=== PATIENT | female | born 1945 | race Caucasian/White ===

== ENCOUNTER → 2016-05-02 | Day surgery (SDC) | payer MEDICARE ==
[~2016-05-02] MED LIST: ACETAMINOPHEN/HYDROcodone 325 MG/5 MG TAB ONE; ALPR-138 PO; BENETAB PO; BUPIVACAINE/EPINEPHRINE 0.25% 50 ML VIAL ONE; CALCTAB80 PO; CLOP75 PO; COZA100T PO; DICLOFENAC SODIUM 37.5 MG/ML VIAL IV PUSH ONE; DOCU1CAP39 PO; EXTR500C PO; FEXO180 PO; HYDR-2768 PO; ISOMCAP PO; LACTATED RINGER'S 1000 ML INJ 1,000 ML ONE; LIDOCAINE PO; MAGNESIUM/ZINC PO; MIDAZOLAM HCL 2 MG/2 ML VIAL ONE; ONDANSETRON HCL 4 MG/2 ML VIAL IV PUSH ONE; PRIL40CA PO; PROP80 PO; PROPOFOL 200 MG/20 ML AMP IV ONE; ZOCO40TA PO; [UNRECOGNIZED DRUG - CODE] PO; [UNRECOGNIZED DRUG - OTHER] PO; ceFAZolin 2 GM PREMIX 50 ML ONE; metroNIDAZOLE 500 MG INJ 100 ML IV ONE
--- NOTE | 2016-05-02 09:49 | TN ---
cc: EDGARDO MALIK M.D. DATE OF SURGERY: 05/02/2016 PREOPERATIVE DIAGNOSIS 1. Chronic right upper quadrant pain. 2. Biliary dyskinesia. POSTOPERATIVE DIAGNOSIS 1. Chronic right upper quadrant pain. 2. Biliary dyskinesia. 3. Probable chronic cholecystitis. 4. Significant small bowel adhesions to midline incision. PROCEDURE PERFORMED 1. Diagnostic laparoscopy. 2. Laparoscopic cholecystectomy. SURGEON Edgardo Malik ANESTHESIA General endotracheal. COMPLICATIONS None. INDICATION FOR PROCEDURE Ms. Lew is a pleasant 70-year-old female who has had problems with chronic right upper quadrant abdominal pain. She has undergone extensive workup by Dr. Calderon. On her HIDA scan she was noted to have a low ejection fraction. Based her symptomatology she was referred for consideration of cholecystectomy. The risks and benefits of open and laparoscopic cholecystectomy were discussed and she was agreeable. DETAILS OF PROCEDURE The patient was identified, brought to the operating room and placed supine on the operating table. After adequate general endotracheal anesthesia was achieved the abdomen was prepped and draped in a standard surgical fashion. The patient had a large midline incision, therefore I elected to gain entry to the abdominal cavity in the right upper quadrant. 0.25% Marcaine was injected in the skin and subcutaneous tissue in the right subcostal region. A transverse incision was made. Dissection was carried down to subcutaneous tissue to the anterior abdominal wall fascia. The anterior abdominal wall fascia was then incised sharply. The muscles were then spread along the course of their fibers. The peritoneum was grasped, elevated and divided sharply. A finger was then placed in the peritoneal cavity without difficulty. A blunt balloon trocar was inserted and the abdomen was insufflated to 15 mmHg using CO2 gas. Next, a 5 mm laparoscope was inserted. Attention was directed to the midline where the patient had extensive small bowel adhesions all along the midline. The small bowel was basically fused to the abdominal wall throughout the entire midline incision. There was no evidence of obstruction or kinking of the bowel or compromise of the bowel. We therefore did not disturb the adhesions as the small bowel was densely adherent to the abdominal wall. Next, a 5 mm trocar was placed in the upper midline above the previous incision away from the small bowel adhesions. Another 5 mm trocar was then placed in the right upper quadrant. Attention was directed to the gallbladder. The gallbladder was identified and noted to be mildly distended and slightly thickened. There were omental adhesions all along the underside of it which were taken down with blunt dissection. The gallbladder neck was then carefully identified and dissected. The cystic artery and cystic duct were clearly seen in two planes entering the neck of the gallbladder. The common bile duct was also easily visualized and seen medial. The cystic duct was then clipped twice proximally, once distally and then divided. The cystic artery was clipped twice proximally, once distally and then divided. The gallbladder was then dissected out of the hepatic fossa using electrocautery Bovie. The gallbladder was placed in an Endopouch bag and brought out through the right upper quadrant incision. The gallbladder was inspected and found to contain no stones. It was enlarged and thickened. There was no evidence of leakage of bile from the cystic duct stump. The gallbladder was sent to pathology for analysis. Next, the abdominal cavity was re-visualized. The liver bed was completely hemostatic. Clips were in place on the cystic artery and cystic duct stump without evidence of leakage of bile or bleeding. 0.25% Marcaine was injected in the operative field. All trocars were then removed under direct vision. The right upper quadrant fascia was then closed with 0 Vicryl in [id number] fashion. Skin was closed with 4-0 Vicryl. The patient tolerated the procedure well, was awakened and brought to Recovery in stable condition. MD JEAN Weston/SHIRLEY /9:16 AM /9:23 AM
== END | disposition home or self-care (01) ==
LOC: ESDC 06:32
PROVIDERS: ATTEND Surgery Trauma Surgery
DX: K81.1 Chronic cholecystitis (principal); K66.0 Peritoneal adhesions (postprocedural) (postinfection)
CPT/HCPCS: 00790; 47562; 88304; J0690; J1130; J2250; J2405; J3010; J7120